=== PATIENT | female | born 1980 | race Caucasian/White ===

== ENCOUNTER 2024-03-13 10:21 | Inpatient (IN) | payer OTHER ==
--- NOTE | 2024-03-13 10:52 | ED ---
General Adult HPI - General Chief complaint: Shortness of Breath Stated complaint: SOB/Covid + Time Seen by Provider: 03/13/24 10:52 Source: patient, RN notes reviewed Mode of arrival: EMS Limitations: no limitations - History of Present Illness Initial comments: Patient is a 43-year-old female present to the emergency department with concerns for difficulty breathing. Patient started with cold symptoms around 4 days ago. Patient has congestion and cough. Patient also feels short of breath. Patient states there is a history of asthma and COPD. Patient is a smoker. Patient tested positive for COVID-19 infection at the facility she came from, [facility]. Patient is there for alcohol and opiates. - Related Data Allergies Allergy/AdvReac Type Severity Reaction Status Date / Time No Known Allergies Allergy Verified 03/13/24 10:29 Review of Systems ROS Statement: Those systems with pertinent positive or pertinent negative responses have been documented in the HPI. ROS Other: All systems not noted in ROS Statement are negative. Constitutional: Reports: chills Eyes: Denies: eye pain ENT: Reports: congestion. Denies: ear pain Respiratory: Reports: cough, dyspnea Endocrine: Reports: fatigue Gastrointestinal: Denies: abdominal pain, nausea, vomiting Musculoskeletal: Denies: back pain Past Medical History Past Medical History: Asthma, COPD Past Surgical History: No Surgical Hx Reported Past Psychological History: Depression Smoking Status: Current every day smoker, Vaper Past Alcohol Use History: Abuse Past Drug Use History: Marijuana General Exam Limitations: no limitations General appearance: alert Head exam: Present: normocephalic Eye exam: Present: normal appearance Neck exam: Present: normal inspection Respiratory exam: Present: rhonchi (Right sided), decreased breath sounds Cardiovascular Exam: Present: regular rate, normal rhythm GI/Abdominal exam: Present: soft. Absent: tenderness Extremities exam: Present: normal inspection. Absent: pedal edema, calf tenderness Neurological exam: Present: alert Psychiatric exam: Present: normal affect, normal mood Skin exam: Present: normal color Course Vital Signs 03/13/24 03/13/24 03/13/24 10:25 10:29 12:01 Temperature 98.1 F Pulse Rate 72 89 72 Respiratory 24 24 24 Rate Blood Pressure 88/56 90/50 100/57 O2 Sat by Pulse 86 L 92 L 94 L Oximetry EKG Findings - EKG Results: EKG: interpreted by ERMD, sinus rhythm, normal axis, normal QRS, normal ST/T EKG shows: bradycardia Medical Decision Making - Medical Decision Making Was pt. sent in by a medical professional or institution (KIRILL Fragoso, SCIENTIFIC SYSTEMS ANALYST, urgent care, hospital, or [place] health care facility...) When possible be specific @ -Patient was sent in from [facility] Did you speak to anyone other than the patient for history (EMS, parent, family, police, friend...)? What history was obtained from this source @ -No Did you review nursing and triage notes (agree or disagree)? Why? @ -I reviewed and agree with nursing and triage notes Were old charts reviewed (outside hosp., previous admission, EMS record, old EKG, old radiological studies, urgent care reports/EKG's, [place] health care facility records)? Report findings @ -No old charts were reviewed Differential Diagnosis (chest pain, altered mental status, abdominal pain women, abdominal pain men, vaginal bleeding, weakness, fever, dyspnea, syncope, headache, dizziness, GI bleed, back pain, seizure, CVA, palpatations, mental health, musculoskeletal)? @ -Differential Dyspnea: Coronary syndrome, arrhythmia, tamponade, asthma, COPD, pulmonary embolism, pneumonia, pneumothorax, pulmonary effusion, anaphylaxis, diabetic ketoacidosis, flailed chest, pulmonary contusion, diaphragmatic rupture, anemia, neuromuscular, this is not meant to be an all-inclusive list. EKG interpreted by me (3pts min.). @ -As above X-rays interpreted by me (1pt min.). @ -Chest x-ray shows right lower lobe infiltrate CT interpreted by me (1pt min.). @ -None done U/S interpreted by me (1pt. min.). @ -None done What testing was considered but not performed or refused? (CT, X-rays, U/S, labs)? Why? @ -None What meds were considered but not given or refused? Why? @ -None Did you discuss the management of the patient with other professionals (professionals i.e. KIRILL Fragoso, SCIENTIFIC SYSTEMS ANALYST, lab, RT, psych nurse, health social work professor, agriculture consultant, teacher, money position officer, case assembler)? Give summary @ -Case discussed with practitioner Daniel with [facility] who will admit covering hospital call Was smoking cessation discussed for >3mins.? @ -No Was critical care preformed (if so, how long)? @ -31 minutes critical care time Were there social determinants of health that impacted care today? How? (Homelessness, low income, unemployed, alcoholism, drug addiction, transportation, low edu. Level, literacy, decrease access to med. care, alf, rehab)? @ -No Was there de-escalation of care discussed even if they declined (Discuss DNR or withdrawal of care, Hospice)? DNR status @ -No What co-morbidities impacted this encounter? (DM, HTN, Smoking, COPD, CAD, Cancer, CVA, ARF, Chemo, Hep., AIDS, mental health diagnosis, sleep apnea, morbid obesity)? @ -History of asthma and COPD Was patient admitted / discharged? Hospital course, mention meds given and route, prescriptions, significant lab abnormalities, going to OR and other pertinent info. @ -Patient presents with hypoxia and dyspnea with recent COVID-19 diagnosis. Chest x-ray concerning for COVID-pneumonia. Patient will be admitted with IV steroids and oxygen. Admission orders written. Undiagnosed new problem with uncertain prognosis? @ -No Drug Therapy requiring intensive monitoring for toxicity (Heparin, Nitro, Insulin, Cardizem)? @ -No Were any procedures done? @ -No Diagnosis/symptom? @ -COVID-19 pneumonia Acute, or Chronic, or Acute on Chronic? @ -Acute Uncomplicated (without systemic symptoms) or Complicated (systemic symptoms)? @ -Complicated with hypoxia Side effects of treatment? @ -No Exacerbation, Progression, or Severe Exacerbation? @ -No Poses a threat to life or bodily function? How? (Chest pain, USA, ID, pneumonia, PE, COPD, DKA, ARF, appy, cholecystitis, CVA, Diverticulitis, Homicidal, Suicidal, threat to staff... and all critical care pts) @ -Threat to pulmonary function - Lab Data Result diagrams: 03/13/24 10:55 03/13/24 10:55 Lab Results 03/13/24 03/13/24 03/13/24 Range/Units 10:55 10:55 10:55 WBC 10.4 (3.8-10.6) k/uL RBC 4.29 (3.80-5.40) m/uL Hgb 13.3 (11.4-16.0) gm/dL Hct 41.0 (34.0-46.0) % MCV 95.4 (80.0-100.0) fL MCH 30.9 (25.0-35.0) pg MCHC 32.4 (31.0-37.0) g/dL RDW 13.9 (11.5-15.5) % Plt Count 246 (150-450) k/uL MPV 7.9 Neutrophils % 77 % Lymphocytes % 18 % Monocytes % 3 % Eosinophils % 1 % Basophils % 0 % Neutrophils # 8.1 H (1.3-7.7) k/uL Lymphocytes # 1.9 (1.0-4.8) k/uL Monocytes # 0.3 (0-1.0) k/uL Eosinophils # 0.1 (0-0.7) k/uL Basophils # 0.0 (0-0.2) k/uL PT 11.2 (10.0-12.5) sec INR 1.0 (<1.2) APTT 23.5 (22.0-30.0) sec Sodium 138 (137-145) mmol/L Potassium 4.5 (3.5-5.1) mmol/L Chloride 104 (98-107) mmol/L Carbon Dioxide 33 H (22-30) mmol/L Anion Gap 1 mmol/L BUN 21 H (7-17) mg/dL Creatinine 0.67 (0.52-1.04) mg/dL Est GFR (CKD-EPI)AfAm >90 (>60 ml/min/1.73 sqM) Est GFR (CKD-EPI)NonAf >90 (>60 ml/min/1.73 sqM) Glucose 112 H (74-99) mg/dL Plasma Lactic Acid Cain (0.7-2.0) mmol/L Calcium 8.8 (8.4-10.2) mg/dL Magnesium 1.8 (1.6-2.3) mg/dL Total Bilirubin 0.3 (0.2-1.3) mg/dL AST 22 (14-36) U/L ALT 18 (4-34) U/L Alkaline Phosphatase 56 (38-126) U/L Troponin I (0.000-0.034) ng/mL Total Protein 6.2 L (6.3-8.2) g/dL Albumin 3.4 L (3.5-5.0) g/dL 03/13/24 03/13/24 Range/Units 10:55 10:55 WBC (3.8-10.6) k/uL RBC (3.80-5.40) m/uL Hgb (11.4-16.0) gm/dL Hct (34.0-46.0) % MCV (80.0-100.0) fL MCH (25.0-35.0) pg MCHC (31.0-37.0) g/dL RDW (11.5-15.5) % Plt Count (150-450) k/uL MPV Neutrophils % % Lymphocytes % % Monocytes % % Eosinophils % % Basophils % % Neutrophils # (1.3-7.7) k/uL Lymphocytes # (1.0-4.8) k/uL Monocytes # (0-1.0) k/uL Eosinophils # (0-0.7) k/uL Basophils # (0-0.2) k/uL PT (10.0-12.5) sec INR (<1.2) APTT (22.0-30.0) sec Sodium (137-145) mmol/L Potassium (3.5-5.1) mmol/L Chloride (98-107) mmol/L Carbon Dioxide (22-30) mmol/L Anion Gap mmol/L BUN (7-17) mg/dL Creatinine (0.52-1.04) mg/dL Est GFR (CKD-EPI)AfAm (>60 ml/min/1.73 sqM) Est GFR (CKD-EPI)NonAf (>60 ml/min/1.73 sqM) Glucose (74-99) mg/dL Plasma Lactic Acid Cain 1.4 (0.7-2.0) mmol/L Calcium (8.4-10.2) mg/dL Magnesium (1.6-2.3) mg/dL Total Bilirubin (0.2-1.3) mg/dL AST (14-36) U/L ALT (4-34) U/L Alkaline Phosphatase (38-126) U/L Troponin I <0.012 (0.000-0.034) ng/mL Total Protein (6.3-8.2) g/dL Albumin (3.5-5.0) g/dL Disposition Clinical Impression: Pneumonia due to COVID-19 virus Disposition: ADMITTED IP TO THIS HOSP Condition: Serious Is patient prescribed a controlled substance at d/c from ED?: No Referrals: None,Stated [Primary Care Provider] - 1-2 days Time of Disposition: 12:20
[2024-03-13 11:09] LABS: Basophils % (A) 0 %; Eosinophils # (A) 0.1 k/uL (0-0.7); Eosinophils % (A) 1 %; HGB 13.3 gm/dL (11.4-16.0); Lymphocytes # (A) 1.9 k/uL (1.0-4.8); Lymphocytes % (A) 18 %; MCH 30.9 pg (25.0-35.0); MCHC 32.4 g/dL (31.0-37.0); MCV 95.4 fL (80.0-100.0); Mean Platelet Volume 7.9; Monocytes # (A) 0.3 k/uL (0-1.0); Monocytes % (A) 3 %; Neutrophils # (A) 8.1 k/uL (1.3-7.7); Neutrophils % (A) 77 %; Platelet Count 246 k/uL (150-450); RBC 4.29 m/uL (3.80-5.40); RDW 13.9 % (11.5-15.5); WBC 10.4 k/uL (3.8-10.6)
[2024-03-13] MEDS ORDERED: ACETAMINOPHEN TAB 325 MG TAB PO PRN (11:21)
[2024-03-13] MEDS ORDERED: ALBUTEROL HFA INHALER INHALATION PRN (11:21)
[2024-03-13 11:25] LABS: ALT 18 U/L (4-34); AST 22 U/L (14-36); African American GFR (CKD) >90 (>60 ml/min/1.73 sqM); Albumin 3.4 g/dL (3.5-5.0); Alkaline Phosphatase 56 U/L (38-126); Anion Gap 1 mmol/L; Blood Urea Nitrogen 21 mg/dL (7-17); Calcium 8.8 mg/dL (8.4-10.2); Carbon Dioxide 33 mmol/L (22-30); Chloride 104 mmol/L (98-107); Glucose 112 mg/dL (74-99); Magnesium 1.8 mg/dL (1.6-2.3); Non-African American GFR(CKD) >90 (>60 ml/min/1.73 sqM); Partial Thromboplastin Time 23.5 sec (22.0-30.0); Potassium 4.5 mmol/L (3.5-5.1); Prothrombin Time 11.2 sec (10.0-12.5); Sodium 138 mmol/L (137-145); Total Bilirubin 0.3 mg/dL (0.2-1.3); Total Protein 6.2 g/dL (6.3-8.2)
[2024-03-13] MEDS: ALBUTEROL HFA INHALER INHALATION STA (11:35)
--- NOTE | 2024-03-13 11:50 | XR ---
EXAMINATION TYPE: XR chest 2V DATE OF EXAM: 03/13/2024 11:34 AM CLINICAL INDICATION: Female, 43 years old with history of difficulty breathing; [facility] COMPARISON: None TECHNIQUE: XR chest 2V Frontal and lateral views of the chest. FINDINGS: Lungs/Pleura:Airspace opacities project over the spine in the middle lobe on lateral view. There is n o evidence of pleural effusion, focal consolidation, or pneumothorax. Pulmonary vascularity: Unremarkable. Heart/mediastinum: Cardiomediastinal silhouette is unremarkable. Musculoskeletal: No acute osseous pathology. IMPRESSION: Somewhat linear opacities project over the spine lateral view and in the expected location of the rig ht middle lobe correlate for pneumonia. This can be confirmed with CT. [facility], , 03/13/2024 11:48 AM
[2024-03-13] MEDS: SODIUM CHLORIDE 0.9% 1,000 ML IV STA ×2 (11:55→11:56)
[2024-03-13] MEDS: DEXAMETHASONE SOD PHOSPHATE 10 MG/ML 1 ML VIAL IVP SCH (11:56)
[2024-03-13] MEDS ORDERED: NALOXONE 0.4 MG/ML 1 ML VIAL IV PRN (12:20)
[2024-03-13 12:22] LABS: C Reactive Protein 0.8 mg/dL (<1.0)
[2024-03-13] MEDS: SODIUM CHLORIDE 0.9% 1,000 ML IV SCH (12:31)
[2024-03-13] MEDS ORDERED: HYOSCYAMINE SULFATE 0.125 MG TAB PO PRN (13:25)
[2024-03-13] MEDS ORDERED: diphenhydrAMINE 25 MG CAP PO PRN (13:25)
--- NOTE | 2024-03-13 14:07 | P.HPIM ---
History of Present Illness H&P Date: 03/13/24 History of Presenting Illness: Patient is a 43-year-old female with a past medical history of asthma/COPD with continued nicotine dependence, daily alcohol abuse, and polysubstance abuse with marijuana and opioids. She reports she has been clean from opioids and on methadone for 1 month and last alcoholic drink was 5 days ago when she was admitted to [facility] for rehab. Patient reports over the past 4 days she developed a cough and upper respiratory like infection. She reports being started on steroids and a Z-Juve with no relief. Patient states she has had increasing shortness of breath and nonproductive cough and was tested for COVID which was positive and she was sent to the emergency department for evaluation. Patient denies having any known fevers, chills, diaphoresis, headache, lightheadedness, dizziness, chest pain, palpitations, nausea, vomiting, abdominal pain or experiencing any numbness/tingling/weakness/swelling in her extremities. Patient denies chance of . Upon arrival to our facility, patient underwent evaluation in the emergency department. Vital signs upon arrival show blood pressure 88/56, heart rate 72, respiratory rate 24, temp 98.1 F, and SpO2 of 86% on room air. EKG completed showing sinus bradycardia at 57 bpm with no significant T wave or ST abnormality showing no signs of acute ischemia upon personal review and interpretation. Chest x-ray completed showing linear opacities of right middle lobe concerning for pneumonia. Labs were completed and reviewed. CBC unremarkable. Coagulation profile normal findings. BMP showing hypercarbia with bicarb of 33 and mild prerenal azotemia with BUN of 21. Blood glucose 112. Lactic acid 1.4. Magnesium 1.8. Influenza A, influenza B, RSV, and repeat COVID PCR at our facility was negative. Patient requiring placement on supplemental oxygen of 4 L with SpO2 increasing to 92%. She was also provided with a 1 L bolus of 0.9% normal saline increasing blood pressure 230/68 at time of admission. Patient admitted under our services for acute on chronic hypoxic respiratory failure secondary to COPD exacerbation and underlying pneumonia. Pulmonology was consulted. Review of systems: Pertinent positives and negatives as discussed in HPI, a complete review of systems was performed and all other systems are negative. Physical exam: Vital signs reviewed and stable. General: Nontoxic, no signs of acute distress Derm: Skin warm and dry, normal coloration for ethnicity. Head: Atraumatic, normocephalic and symmetric. Eyes: EOM's intact, no lid lag, and anicteric sclera Mouth: no lip lesions, mucus membranes moist Cardiovascular: regular rate and rhythm with normal S1S2, no murmur, positive posterior tibial pulses bilaterally, and cap refill < 2 seconds. Lungs: Respirations even, regular, and unlabored on 4 L O2 via nasal cannula. Lungs diminished with diffuse rhonchi and expiratory wheezes. Abdominal: soft, nontender to palpation, no guarding, no appreciable organomegaly Ext: ROM intact. No gross muscle atrophy, no edema, no contractures Neuro: Speech clear, face symmetrical and CN II-XII grossly intact with no noted focal neuro deficits Psych: Alert and oriented to person, place, time, and situation. Appropriate and pleasant affect. Assessment and Plan of Care: Acute on chronic respiratory failure with hypoxia COPD with acute exacerbation Community-acquired pneumonia COVID infection Sepsis on admission with hypotension, tachypnea, and hypoxia -Consult to Pulmonology -Oxygenation to be administered and titrated as needed to maintain SPO2 equal to or greater than 92% -Telemetry monitoring. -Monitor pulse-oximetry -Ventolin inhaler scheduled 4 times daily and as needed for SOB and/or wheezing -Incentive Spirometry -Steroids: Decadron 6 mg daily -Antibiotics: Rocephin 2 g IVPB every 48 hours and azithromycin 500 mg daily. -Follow up on Procalcitonin results. -Order placed for stat urine hCG. Polysubstance abuse Alcohol abuse -Continue methadone 30 mg daily. -Recommend returning to [facility] once medically cleared for discharge. Data and imaging reviewed: As stated above in HPI The patient is admitted with an anticipated greater than 2 midnight stay for evaluation of on chronic respiratory failure with hypoxia secondary to COPD exacerbation with underlying pneumonia and questionable COVID infection. CODE STATUS: Full code DVT prophylaxis: Lovenox Anticipated discharge date: Pending clinical course Anticipated discharge place: Home versus return to [facility] Patient was seen independently by Nurse Practitioner. This document was prepared using [employer] dictation software. Please allow for errors in intake clerk while rare they do occur. .I reviewed the documentation as provided by the ALEXANDER above, who is the original author of this note. I agree with the documented assessment and plan, with the following changes: none Past Medical History Past Medical History: Asthma, COPD Past Surgical History: No Surgical Hx Reported Past Psychological History: Depression Smoking Status: Current every day smoker, Vaper Past Alcohol Use History: Abuse Past Drug Use History: Marijuana Medications and Allergies Home Medications Medication Instructions Recorded Confirmed Type Acetaminophen Tab [Tylenol] 650 mg PO Q4H PRN 03/13/24 03/13/24 History Albuterol Nebulized [Ventolin 2.5 mg INHALATION RT-Q4H PRN 03/13/24 03/13/24 History Nebulized] Azithromycin [Zithromax Z Pack] See Taper PO DIRECTED 03/13/24 03/13/24 History Calcium Phos/D3/Magnesium/Zinc 1 tab PO TID PRN 03/13/24 03/13/24 History [Pruvjmc-Esh-Pdip-Vitamin D3] Chlorpheniramine Maleate 4 mg PO Q4H PRN 03/13/24 03/13/24 History [Chlor-Trimeton] Hyoscyamine Sulfate [Levsin] 0.125 mg PO QID PRN 03/13/24 03/13/24 History Ibuprofen [Motrin Ib] 600 mg PO Q6H PRN 03/13/24 03/13/24 History Loperamide HCl [Imodium A-D] 4 mg PO QID PRN 03/13/24 03/13/24 History Mag Hydrox/Aluminum Hyd/Simeth 30 ml PO Q4H PRN 03/13/24 03/13/24 History [Mylanta Maximum Strength Liq] Melatonin 10 mg PO HS 03/13/24 03/13/24 History Methadone HCl [Methadone Intensol] 30 mg PO DAILY 03/13/24 03/13/24 History Multivitamins, Thera [Multivitamin 1 tab PO DAILY 03/13/24 03/13/24 History (formulary)] Thiamine [Vitamin B-1] 100 mg PO DAILY 03/13/24 03/13/24 History cloNIDine HCL [Catapres] 0.1 - 0.3 mg PO Q4H PRN 03/13/24 03/13/24 History guaiFENesin [guaiFENesin Oral 200 mg PO Q4H PRN 03/13/24 03/13/24 History Solution] ondansetron HCL [Zofran] 8 mg PO Q6H PRN 03/13/24 03/13/24 History predniSONE [Deltasone] See Taper PO DIRECTED 03/13/24 03/13/24 History traZODone HCL [Desyrel] 50 - 150 mg PO HS PRN 03/13/24 03/13/24 History Allergies Allergy/AdvReac Type Severity Reaction Status Date / Time No Known Allergies Allergy Verified 03/13/24 12:59 Physical Exam Vitals: Vital Signs Temp Pulse Resp BP Pulse Ox 03/13/24 12:53 85 20 130/68 94 L 03/13/24 12:01 72 24 100/57 94 L 03/13/24 10:29 89 24 90/50 92 L 03/13/24 10:25 98.1 F 72 24 88/56 86 L Intake and Output 03/12/24 03/13/24 03/13/24 22:59 06:59 14:59 Other: Weight 63.503 kg Results CBC & Chem 7: 03/14/24 06:26 03/14/24 06:26 Labs: Abnormal Lab Results - Last 24 Hours (Table) 03/13/24 03/13/24 Range/Units 10:55 10:55 Neutrophils # 8.1 H (1.3-7.7) k/uL Carbon Dioxide 33 H (22-30) mmol/L BUN 21 H (7-17) mg/dL Glucose 112 H (74-99) mg/dL Total Protein 6.2 L (6.3-8.2) g/dL Albumin 3.4 L (3.5-5.0) g/dL
[2024-03-13] MEDS: NICOTINE 14MG/24HR PATCH TRANSDERM SCH (14:22)
[2024-03-13] MEDS: AZITHROMYCIN 500 MG in SODIUM CHLORIDE 0.9% 250 ML IVPB SCH (15:51)
[2024-03-13] MEDS: ALBUTEROL HFA INHALER INHALATION SCH ×2 (15:54→20:03)
[2024-03-13] MEDS: LORazepam 0.5 MG TAB PO PRN (18:36)
[2024-03-13] MEDS: MELATONIN 5 MG TABLET PO SCH (20:07)
[2024-03-13] MEDS: guaiFENesin SYRUP 100MG/5ML 200 MG/10 ML CUP PO PRN (20:07)
[2024-03-13] MEDS: traZODone HCL 100 MG TAB PO PRN (20:07)
[2024-03-14] MEDS: PROCHLORPERAZINE INJ 10 MG/2 ML VIAL IVP PRN (06:55)
[2024-03-14] MEDS: MULTIVITAMINS, THERA 1 EACH TAB PO SCH (09:22)
[2024-03-14] MEDS: ENOXAPARIN 40 MG/0.4 ML SYRINGE SQ SCH (09:22)
[2024-03-14] MEDS: THIAMINE 100 MG TAB PO SCH (09:22)
[2024-03-14] MEDS: METHADONE 10 MG TAB PO SCH (09:22)
[2024-03-14 09:29] LABS: HGB 12.3 g/dL (12.0-15.0); MCH 30.2 pg (27.0-32.0); MCHC 31.5 g/dL (32.0-37.0); MCV 95.8 FL (80.0-97.0); NRBC Per 100 WBC 0 X 10*3/uL (0.00-0.01); Platelet Count 264 X 10*3/uL (140-440); RBC 4.07 X 10*6/uL (4.10-5.20); RDW 13.5 % (11.5-14.5)
[2024-03-14 09:33] LABS: ALT 18 U/L (8-44); AST 16 U/L (13-35); Albumin 3.3 g/dL (3.8-4.9); Albumin/Globulin Ratio 1.27 Ratio (1.60-3.17); Alkaline Phosphatase 57 U/L (41-126); BUN/Creat Ratio 25.67 Ratio (12.00-20.00); Blood Urea Nitrogen 15.4 mg/dL (9.0-27.0); Calcium 8.8 mg/dL (8.7-10.3); Carbon Dioxide 29.7 mmol/L (21.6-31.8); Chloride 103 mmol/L (96-109); Globulin 2.6 g/dL (1.6-3.3); Glucose 109 mg/dL (70-110); Magnesium 1.9 mg/dL (1.5-2.4); Potassium 4.4 mmol/L (3.5-5.5); Sodium 140 mmol/L (135-145); Total Bilirubin <0.2 mg/dL (0.3-1.2); Total Protein 5.9 g/dL (6.2-8.2)
--- NOTE | 2024-03-14 13:05 | P.CNPUL ---
History of Present Illness Consult date: 03/14/24 Requesting physician: Daniel Hightower Reason for consult: cough Chief complaint: Cough and congestion History of present illness: This is a 43-year-old female patient with a history of chronic obstructive pulmonary disease, chronic and ongoing tobacco dependence, vaping, alcohol and substance abuse, marijuana use who was currently in [facility] for alcohol and opiate rehabilitation. She had developed a 4-day history of increasing shortness of breath cough and congestion. [facility] tested positive for COVID-19 infection there. Presented to the emergency room yesterday. Chest x-ray shows streaky atelectasis/infiltrate of the right lower lobe. Count 13.8. Hemoglobin 12.3. Platelets 264. Sodium 140. Potassium 4.4. Bicarb 30. BUN 15. Creatinine 0.6. Glucose 109. Procalcitonin was negative at 0.05. Viral screen negative. COVID-19 screen negative here. She is seen today in consultation on the regular medical floor. She is currently resting in bed. Awake and alert in no acute distress. She is maintaining O2 saturations in the 90s on 4 L/min per nasal cannula. She is afebrile. Hemodynamically stable. She is currently on albuterol, Decadron Robitussin. Antibiotics in the form of ceftriaxone and azithromycin. Lovenox for DVT prophylaxis. NicoDerm patch in place. Review of Systems REVIEW OF SYSTEMS: CONSTITUTIONAL: Denies any recent significant weight loss or weight gain. EYES: Denies change in vision. EARS, NOSE, MOUTH, THROAT: Denies headaches, denies sore throat. CARDIOVASCULAR: Denies chest pain, palpitations or syncopal episodes. RESPIRATORY: Positive for shortness of breath, cough, congestion or hemoptysis. GASTROINTESTINAL: Denies change in appetite, denies abdominal pain GENITOURINARY: Denies hematuria, denies infections. MUSKULOSKELETAL: Denies pain, denies swelling. INTEGUMENTARY: Denies rash, denies eczema. NEUROLOGICAL: Denies recent memory loss, no recent seizure activity. PSYCHIATRIC: Denies anxiety, denies depression. HEMATOLOGIC/LYMPHATIC: Denies anemia, denies enlarged lymph nodes. Past Medical History Past Medical History: Asthma, COPD History of Any Multi-Drug Resistant Organisms: None Reported Past Surgical History: No Surgical Hx Reported Smoking Status: Current every day smoker - Past Family History Father Family Medical History: No Reported History Medications and Allergies Home Medications Medication Instructions Recorded Confirmed Type Acetaminophen Tab [Tylenol] 650 mg PO Q4H PRN 03/13/24 03/13/24 History Albuterol Nebulized [Ventolin 2.5 mg INHALATION RT-Q4H PRN 03/13/24 03/13/24 History Nebulized] Azithromycin [Zithromax Z Pack] See Taper PO DIRECTED 03/13/24 03/13/24 History Calcium Phos/D3/Magnesium/Zinc 1 tab PO TID PRN 03/13/24 03/13/24 History [Pebdxnz-Gma-Nydl-Vitamin D3] Chlorpheniramine Maleate 4 mg PO Q4H PRN 03/13/24 03/13/24 History [Chlor-Trimeton] Hyoscyamine Sulfate [Levsin] 0.125 mg PO QID PRN 03/13/24 03/13/24 History Ibuprofen [Motrin Ib] 600 mg PO Q6H PRN 03/13/24 03/13/24 History Loperamide HCl [Imodium A-D] 4 mg PO QID PRN 03/13/24 03/13/24 History Mag Hydrox/Aluminum Hyd/Simeth 30 ml PO Q4H PRN 03/13/24 03/13/24 History [Mylanta Maximum Strength Liq] Melatonin 10 mg PO HS 03/13/24 03/13/24 History Methadone HCl [Methadone Intensol] 30 mg PO DAILY 03/13/24 03/13/24 History Multivitamins, Thera [Multivitamin 1 tab PO DAILY 03/13/24 03/13/24 History (formulary)] Thiamine [Vitamin B-1] 100 mg PO DAILY 03/13/24 03/13/24 History cloNIDine HCL [Catapres] 0.1 - 0.3 mg PO Q4H PRN 03/13/24 03/13/24 History guaiFENesin [guaiFENesin Oral 200 mg PO Q4H PRN 03/13/24 03/13/24 History Solution] ondansetron HCL [Zofran] 8 mg PO Q6H PRN 03/13/24 03/13/24 History predniSONE [Deltasone] See Taper PO DIRECTED 03/13/24 03/13/24 History traZODone HCL [Desyrel] 50 - 150 mg PO HS PRN 03/13/24 03/13/24 History Allergies Allergy/AdvReac Type Severity Reaction Status Date / Time No Known Allergies Allergy Verified 03/13/24 12:59 Physical Exam Vitals: Vital Signs Temp Pulse Pulse Resp BP BP Pulse Ox 03/14/24 02:00 98.2 F 53 L 16 117/63 96 03/13/24 19:53 98.5 F 60 114/67 97 03/13/24 17:47 89 20 140/68 96 03/13/24 17:00 86 20 128/68 96 03/13/24 15:56 63 20 116/70 93 L 03/13/24 15:00 80 24 130/70 96 Intake and Output 03/13/24 03/14/24 03/14/24 22:59 06:59 14:59 Other: Weight 63.503 kg GENERAL EXAM: Alert, 43-year-old female, on 4 L nasal cannula, comfortable in no apparent distress. HEAD: Normocephalic. EYES: Normal reaction of pupils, equal size. NOSE: Clear with pink turbinates. THROAT: Edentulous. No erythema or exudates. NECK: No masses, no JVD. CHEST: No chest wall deformity. LUNGS: Equal air entry with few scattered rhonchi. CVS: S1 and S2 normal with no audible murmur, regular rhythm. ABDOMEN: No hepatosplenomegaly, normal bowel sounds, no guarding or rigidity. SPINE: No scoliosis or deformity SKIN: No rashes CENTRAL NERVOUS SYSTEM: No focal deficits, tone is normal in all 4 extremities. EXTREMITIES: There is no peripheral edema. No clubbing, no cyanosis. Peripheral pulses are intact. Results - Laboratory Findings CBC and BMP: 03/14/24 06:26 03/14/24 06:26 PT/INR, D-dimer PT 11.2 sec (10.0-12.5) 03/13/24 10:55 INR 1.0 (<1.2) 03/13/24 10:55 Abnormal lab findings: Abnormal Labs 03/13/24 03/13/24 03/14/24 10:55 10:55 06:26 WBC 13.80 H RBC 4.07 L MCHC 31.5 L Neutrophils # 8.1 H Carbon Dioxide 33 H BUN 21 H BUN/Creatinine Ratio Glucose 112 H Total Bilirubin Total Protein 6.2 L Albumin 3.4 L Albumin/Globulin Ratio 03/14/24 06:26 WBC RBC MCHC Neutrophils # Carbon Dioxide BUN BUN/Creatinine Ratio 25.67 H Glucose Total Bilirubin <0.2 L Total Protein 5.9 L Albumin 3.3 L Albumin/Globulin Ratio 1.27 L - Diagnostic Findings Chest x-ray: image reviewed Assessment and Plan Assessment: Acute hypoxic respiratory failure secondary to acute exacerbation of suspected chronic obstructive pulmonary disease, possible atypical pneumonia. Procalcitonin negative. Viral screen negative Chronic and ongoing tobacco dependence, vaping History of alcohol abuse History of opioid abuse Marijuana use History of depression Plan: Patient was seen and evaluated Chest x-ray, labs and medications reviewed Titrate down/off the oxygen as tolerated Could be transferred back to [facility] Complete 3 more days of azithromycin Complete a Medrol Dosepak Educated regarding the importance of complete smoking cessation NicoDerm patch in place Follow up closely with her PCP in [place] I have personally seen and examined the patient, performed the documentation and the assessment and plan as written. Number of minutes spent on the visit: 20 Dictation was produced using [employer] dictation software. Please excuse any grammatical, word or spelling errors.
--- NOTE | 2024-03-14 15:54 | P.PN ---
Subjective Progress Note Date: 03/14/24 Hospital Course: Patient is a 43-year-old female with a past medical history of asthma/COPD with continued nicotine dependence, daily alcohol abuse, and polysubstance abuse with marijuana and opioids. She reports she has been clean from opioids and on methadone for 1 month and last alcoholic drink was 5 days ago when she was admitted to [facility] for rehab. Patient reports over the past 4 days she developed a cough and upper respiratory like infection. She reports being started on steroids and a Z-Juve with no relief. Patient states she has had increasing shortness of breath and nonproductive cough and was tested for COVID which was positive and she was sent to the emergency department for evaluation. Patient denies having any known fevers, chills, diaphoresis, headache, lightheadedness, dizziness, chest pain, palpitations, nausea, vomiting, ab dominal pain or experiencing any numbness/tingling/weakness/swelling in her extremities. Patient denies chance of . Upon arrival to our facility, patient underwent evaluation in the emergency department. Vital signs upon arrival show blood pressure 88/56, heart rate 72, respiratory rate 24, temp 98.1 F, and SpO2 of 86% on room air. EKG completed showing sinus bradycardia at 57 bpm with no significant T wave or ST abnormality showing no signs of acute ischemia upon personal review and interpretation. Chest x-ray completed showing linear opacities of right middle lobe concerning for pneumonia. Labs were completed and reviewed. CBC unremarkable. Coagulation profile normal findings. BMP showing hypercarbia with bicarb of 33 and mild prerenal azotemia with BUN of 21. Blood glucose 112. Lactic acid 1.4. Magnesium 1.8. Influenza A, influenza B, RSV, and repeat COVID PCR at our facility was negative. Patient requiring placement on supplemental oxygen of 4 L with SpO2 increasing to 92%. She was also provided with a 1 L bolus of 0.9% normal saline increasing blood pressure 230/68 at time of admission. Patient admitted under our services for acute on chronic hypoxic respiratory failure secondary to COPD exacerbation and underlying pneumonia. Pulmonology was consulted. Physical exam: Evaluated at bedside this morning. She was sleeping but easily awoken via verbal stimuli. She reports continued nonproductive cough and shortness of breath otherwise denies any other complaints. Discussed with nursing staff need to wean down from oxygen to maintain SpO2 equal to or greater than 90 to 92%. Vital signs reviewed and stable. General: Nontoxic, no signs of acute distress Derm: Skin warm and dry, normal coloration for ethnicity. Head: Atraumatic, normocephalic and symmetric. Eyes: EOM's intact, no lid lag, and anicteric sclera Mouth: no lip lesions, mucus membranes moist Cardiovascular: regular rate and rhythm with normal S1S2, no murmur, positive posterior tibial pulses bilaterally, and cap refill < 2 seconds. Lungs: Respirations even, regular, and unlabored on 4 L O2 via nasal cannula. Lungs diminished with diffuse expiratory wheezes. Abdominal: soft, nontender to palpation, no guarding, no appreciable organomegaly Ext: ROM intact. No gross muscle atrophy, no edema, no contractures Neuro: Speech clear, face symmetrical and CN II-XII grossly intact with no noted focal neuro deficits Psych: Alert and oriented to person, place, time, and situation. Appropriate and pleasant affect. Assessment and Plan of Care: Acute on chronic respiratory failure with hypoxia COPD with acute exacerbation Community-acquired pneumonia COVID infection, positive result at [facility] and negative results upon arrival Sepsis on admission with hypotension, tachypnea, and hypoxia -Consult to Pulmonology, appreciate recommendations -Oxygenation to be administered and titrated as needed to maintain SPO2 equal to or greater than 92% -Telemetry monitoring. -Monitor pulse-oximetry -Ventolin inhaler scheduled 4 times daily and as needed for SOB and/or wheezing -Incentive Spirometry -Steroids: Decadron 6 mg daily -Antibiotics: Rocephin 2 g IVPB every 48 hours and azithromycin 500 mg daily (day 2 of antibiotics) -Urine hCG negative. Polysubstance abuse Alcohol abuse -Continue methadone 30 mg daily. -Recommend returning to [facility] once medically cleared for discharge. Data and imaging reviewed: Urine hCG negative. CBC showing mild leukocytosis with WBC count of 13.80 otherwise normal findings. BMP unremarkable. Blood glucose 109. Liver profile normal findings. Albumin low at 3.3. Vital signs reviewed. Blood pressure 127/64, heart rate 53, respiratory rate 16, temp 98.2 F, and SpO2 of 96% on 4 L. CODE STATUS: Full code DVT prophylaxis: Lovenox Anticipated discharge date: Pending clinical course Anticipated discharge place: Home versus return to [facility] Patient was seen independently by Nurse Practitioner. This document was prepared using Dragon dictation software. Please allow for errors in refractory furnace designer while rare they do occur. I reviewed the documentation as provided by the ALEXANDER above, who is the original author of this note. I agree with the documented assessment and plan, with the following changes: none Objective - Vital Signs Vital signs: Vital Signs Temp 98.2 F 03/14/24 02:00 Pulse 53 L 03/14/24 02:00 Resp 16 03/14/24 02:00 BP 117/63 03/14/24 02:00 Pulse Ox 96 03/14/24 02:00 FiO2 Intake & Output 03/13/24 03/14/24 03/14/24 18:59 06:59 18:59 Weight 63.503 kg - Labs CBC & Chem 7: 03/14/24 06:26 03/14/24 06:26 Labs: Abnormal Lab Results - Last 24 Hours (Table) 03/13/24 03/13/24 Range/Units 10:55 10:55 Neutrophils # 8.1 H (1.3-7.7) k/uL Carbon Dioxide 33 H (22-30) mmol/L BUN 21 H (7-17) mg/dL Glucose 112 H (74-99) mg/dL Total Protein 6.2 L (6.3-8.2) g/dL Albumin 3.4 L (3.5-5.0) g/dL
[2024-03-14] MEDS: LORazepam 1 MG TAB PO STA (20:18)
[2024-03-15] MEDS: LORazepam 1 MG TAB PO PRN (07:54)
[2024-03-15 08:35] LABS: HCT 39.6 % (37.2-46.3); HGB 12.7 g/dL (12.0-15.0); MCH 30.8 pg (27.0-32.0); MCHC 32.1 g/dL (32.0-37.0); MCV 95.9 FL (80.0-97.0); Mean Platelet Volume 10.2 FL (9.5-12.2); NRBC Per 100 WBC 0 X 10*3/uL (0.00-0.01); Platelet Count 269 X 10*3/uL (140-440); RBC 4.13 X 10*6/uL (4.10-5.20); RDW 13.4 % (11.5-14.5); WBC 13.67 X 10*3/uL (4.50-10.00)
[2024-03-15 08:53] LABS: Magnesium 1.7 mg/dL (1.5-2.4)
[2024-03-15 08:55] VITALS: BP 96/61; RESP 18; TEMP 98
[2024-03-15 08:56] LABS: Blood Urea Nitrogen 16.5 mg/dL (9.0-27.0); Carbon Dioxide 29.6 mmol/L (21.6-31.8); Chloride 97 mmol/L (96-109); Glucose 136 mg/dL (70-110); Potassium 4.1 mmol/L (3.5-5.5); Sodium 138 mmol/L (135-145)
[2024-03-15 08:57] LABS: ALT 31 U/L (8-44); AST 26 U/L (13-35); Albumin 3.5 g/dL (3.8-4.9); Albumin/Globulin Ratio 1.35 Ratio (1.60-3.17); Alkaline Phosphatase 63 U/L (41-126); Calcium 9.3 mg/dL (8.7-10.3); Globulin 2.6 g/dL (1.6-3.3); Total Bilirubin <0.2 mg/dL (0.3-1.2); Total Protein 6.1 g/dL (6.2-8.2)
--- NOTE | 2024-03-15 10:47 | P.DS ---
Providers Date of admission: 03/13/24 12:22 Expected date of discharge: 03/15/24 Attending physician: Iker Santos Consults: 03/13/24 12:20 Consult Physician Routine Consulting Provider: Desirae Rievra Consult Reason/Comments: COVID-pneumonia Do you want consulting provider notified?: Yes Primary care physician: Stated None Hospital Course: Discharge Diagnosis: Acute on chronic respiratory failure with hypoxia. Patient successfully weaned off oxygen and is maintaining SpO2 of 92% on room air. COPD with acute exacerbation. Patient discharged home on Medrol Dosepak and to complete 3 additional days of Zithromax. Patient strongly encouraged to avoid cigarette smoke exposure and to stop smoking. Patient discharged home with nicotine patch 14 mg daily. To continue use of Ventolin nebulizer treatments as needed for wheezing/shortness of breath. Recommend outpatient follow-up with otorhinolaryngologist in 1 week. Community-acquired pneumonia. Patient completed 2-day course of IV antibiotics and is being discharged home on an additional 3 days of Zithromax 500 mg daily. Influenza A, influenza B, RSV, and COVID PCR were negative. Urine Legionella negative. COVID infection, positive result at [facility] and negative results upon arrival. Sepsis on admission with hypotension, tachypnea, and hypoxia. Patient completed 2-day course of IV antibiotics and is being discharged home on an additional 3 days of Zithromax 500 mg daily. Polysubstance abuse. Continue methadone 30 mg daily. Alcohol abuse. Recommend returning to [facility] once medically cleared for discharge. Hospital Course: Patient is a 43-year-old female with a past medical history of asthma/COPD with continued nicotine dependence, daily alcohol abuse, and polysubstance abuse with marijuana and opioids. She reports she has been clean from opioids and on methadone for 1 month and last alcoholic drink was 5 days ago when she was admitted to [facility] for rehab. Patient reports over the past 4 days she developed a cough and upper respiratory like infection. She reports being started on steroids and a Z-Juve with no relief. Patient states she has had increasing shortness of breath and nonproductive cough and was tested for COVID which was positive and she was sent to the emergency department for evaluation. Patient denies having any known fevers, chills, diaphoresis, headache, lightheadedness, dizziness, chest pain, palpitations, nausea, vomiting, abdominal pain or experiencing any numbness/tingling/weakness/swelling in her extremities. Patient denies chance of . Upon arrival to our facility, patient underwent evaluation in the emergency department. Vital signs upon arrival show blood pressure 88/56, heart rate 72, respiratory rate 24, temp 98.1 F, and SpO2 of 86% on room air. EKG completed showing sinus bradycardia at 57 bpm with no significant T wave or ST abnormality showing no signs of acute ischemia upon personal review and interpretation. Chest x-ray completed showing linear opacities of right middle lobe concerning for pneumonia. Labs were completed and reviewed. CBC unremarkable. Coagulation profile normal findings. BMP showing hypercarbia with bicarb of 33 and mild prerenal azotemia with BUN of 21. Blood glucose 112. Lactic acid 1.4. Magnesium 1.8. Influenza A, influenza B, RSV, and repeat COVID PCR at our facility was negative. Patient requiring placement on supplemental oxygen of 4 L with SpO2 increasing to 92%. She was also provided with a 1 L bolus of 0.9% normal saline increasing blood pressure 230/68 at time of admission. Patient admitted under our services for acute on chronic hypoxic respiratory failure secondary to COPD exacerbation and underlying pneumonia. Pulmonology was consulted. Patient received [id number] breathing treatments and was placed on IV steroids. She was weaned off of oxygen and currently maintaining SpO2 of 92% on room air. Patient cleared from pulmonology perspective for discharge and is medically optimized for return to [facility] at this time. Patient strongly advised to avoid cigarette smoke exposure and to stop smoking. Physical exam: Vital signs reviewed and stable. General: Nontoxic, no signs of acute distress Derm: Skin warm and dry, normal coloration for ethnicity. Head: Atraumatic, normocephalic and symmetric. Eyes: EOM's intact, no lid lag, and anicteric sclera Mouth: no lip lesions, mucus membranes moist Cardiovascular: regular rate and rhythm with normal S1S2, no murmur, positive posterior tibial pulses bilaterally, and cap refill < 2 seconds. Lungs: Respirations even, regular, and unlabored on 4 L O2 via nasal cannula. Lungs diminished with diffuse expiratory wheezes. Abdominal: soft, nontender to palpation, no guarding, no appreciable organomegaly Ext: ROM intact. No gross muscle atrophy, no edema, no contractures Neuro: Speech clear, face symmetrical and CN II-XII grossly intact with no noted focal neuro deficits Psych: Alert and oriented to person, place, time, and situation. Appropriate and pleasant affect. A total of 35 minutes of time were spent preparing this complex discharge summary. Pt was discharged on 03/15/2024 at 9:54 AM. Patient was seen independently by Nurse Practitioner. This document was prepared using [employer] dictation software. Please allow for errors in employment service specialist while rare they do occur. Daniel Hightower NP rendered care for this patient independently, reviewed the findings and plan as documented in the note above. I did not physically speak with or examine the patient on this date. Patient Condition at Discharge: Stable Plan - Discharge Summary New Discharge Prescriptions: New Nicotine 14Mg/24Hr Patch [Habitrol] 1 patch TRANSDERM DAILY 30 Days #30 patch methylPREDNISolone Dose Pack [Medrol Dose Pack] 4 mg PO DIRECTED #21 tab Azithromycin [Zithromax] 500 mg PO DAILY 3 Days #3 tab Continue Albuterol Nebulized [Ventolin Nebulized] 2.5 mg INHALATION RT-Q4H PRN PRN Reason: Shortness Of Breath traZODone HCL [Desyrel] 50 - 150 mg PO HS PRN PRN Reason: Insomnia Thiamine [Vitamin B-1] 100 mg PO DAILY Multivitamins, Thera [Multivitamin (formulary)] 1 tab PO DAILY Mag Hydrox/Aluminum Hyd/Simeth [Mylanta Maximum Strength Liq] 30 ml PO Q4H PRN PRN Reason: Gi Upset Melatonin 10 mg PO HS Loperamide HCl [Imodium A-D] 4 mg PO QID PRN PRN Reason: Loose Stool Chlorpheniramine Maleate [Chlor-Trimeton] 4 mg PO Q4H PRN PRN Reason: Allergy Symptoms Calcium Phos/D3/Magnesium/Zinc [Ravogpa-Zjv-Qnyy-Vitamin D3] 1 tab PO TID PRN PRN Reason: Supplement Methadone HCl [Methadone Intensol] 30 mg PO DAILY ondansetron HCL [Zofran] 8 mg PO Q6H PRN PRN Reason: Nausea And Vomiting Acetaminophen Tab [Tylenol] 650 mg PO Q4H PRN PRN Reason: Pain Ibuprofen [Motrin Ib] 600 mg PO Q6H PRN PRN Reason: Pain Hyoscyamine Sulfate [Levsin] 0.125 mg PO QID PRN PRN Reason: Gi Upset guaiFENesin [guaiFENesin Oral Solution] 200 mg PO Q4H PRN PRN Reason: Cough cloNIDine HCL [Catapres] 0.1 - 0.3 mg PO Q4H PRN PRN Reason: BP >160/100 Discontinued predniSONE [Deltasone] See Taper PO DIRECTED Azithromycin [Zithromax Z Pack] See Taper PO DIRECTED Discharge Medication List Acetaminophen Tab [Tylenol] 650 mg PO Q4H PRN 03/13/24 [History] Albuterol Nebulized [Ventolin Nebulized] 2.5 mg INHALATION RT-Q4H PRN 03/13/24 [History] Calcium Phos/D3/Magnesium/Zinc [Malkqqt-Kjh-Rypz-Vitamin D3] 1 tab PO TID PRN 03/13/24 [History] Chlorpheniramine Maleate [Chlor-Trimeton] 4 mg PO Q4H PRN 03/13/24 [History] Hyoscyamine Sulfate [Levsin] 0.125 mg PO QID PRN 03/13/24 [History] Ibuprofen [Motrin Ib] 600 mg PO Q6H PRN 03/13/24 [History] Loperamide HCl [Imodium A-D] 4 mg PO QID PRN 03/13/24 [History] Mag Hydrox/Aluminum Hyd/Simeth [Mylanta Maximum Strength Liq] 30 ml PO Q4H PRN 1 [History] Melatonin 10 mg PO HS 03/13/24 [History] Methadone HCl [Methadone Intensol] 30 mg PO DAILY 03/13/24 [History] Multivitamins, Thera [Multivitamin (formulary)] 1 tab PO DAILY 03/13/24 [History] Thiamine [Vitamin B-1] 100 mg PO DAILY 03/13/24 [History] cloNIDine HCL [Catapres] 0.1 - 0.3 mg PO Q4H PRN 03/13/24 [History] guaiFENesin [guaiFENesin Oral Solution] 200 mg PO Q4H PRN 03/13/24 [History] ondansetron HCL [Zofran] 8 mg PO Q6H PRN 03/13/24 [History] traZODone HCL [Desyrel] 50 - 150 mg PO HS PRN 03/13/24 [History] Azithromycin [Zithromax] 500 mg PO DAILY 3 Days #3 tab 03/15/24 [Rx] Nicotine 14Mg/24Hr Patch [Habitrol] 1 patch TRANSDERM DAILY 30 Days #30 patch 03/15/24 [Rx] methylPREDNISolone Dose Pack [Medrol Dose Pack] 4 mg PO DIRECTED #21 tab 03/15/24 [Rx] Follow up Appointment(s)/Referral(s): Desirae Rivera MD [STAFF PHYSICIAN] - 1 Week Harish Mcconnell MD [REFERRING] - 03/19/24 11:00 am Patient Instructions/Handouts: COPD (Chronic Obstructive Pulmonary Disease) (DC), Community Acquired Pneumonia (DC), Chronic Lung Disease and Infection Prevention (DC) Activity/Diet/Wound Care/Special Instructions: Activity: As tolerated. Take breaks as needed. Diet: Resume Regular Diet. Special Instructions: Take all of your medications as directed and remember to keep all of your doctor's appointments and follow-up as needed. Thank you for allowing us to participate in your care, it was truly a pleasure having you for our patient!!! Discharge Disposition: HOME SELF-CARE
[2024-03-15] MEDS: methylPREDNISolone 4 MG TAB TAPER PO SCH (11:44)
[2024-03-15 12:46] VITALS: PULSE 65
--- NOTE | 2024-03-15 13:32 | P.PN ---
Subjective Progress Note Date: 03/15/24 This is a 43-year-old female patient with a history of chronic obstructive pulmonary disease, chronic and ongoing tobacco dependence, vaping, alcohol and substance abuse, marijuana use who was currently in [facility] for alcohol and opiate rehabilitation. She had developed a 4-day history of increasing shortness of breath cough and congestion. Stating tested positive for COVID-19 infection there. Presented to the emergency room yesterday. Chest x-ray shows streaky atelectasis/infiltrate of the right lower lobe. Count 13.8. Hemoglobin 12.3. Platelets 264. Sodium 140. Potassium 4.4. Bicarb 30. BUN 15. Creatinine 0.6. Glucose 109. Procalcitonin was negative at 0.05. Viral screen negative. COVID-19 screen negative here. She is seen today in consultation on the regular medical floor. She is currently resting in bed. Awake and alert in no acute distress. She is maintaining O2 saturations in the 90s on 4 L/min per nasal cannula. She is afebrile. Hemodynamically stable. She is currently on albuterol, Decadron Robitussin. Antibiotics in the form of ceftriaxone and azithromycin. Lovenox for DVT prophylaxis. NicoDerm patch in place. The patient is seen today March 15, 2024 in follow-up on the regular medical floor. She is currently sitting up in bed. Awake and alert in no acute distress. She is maintaining good O2 saturations in the 90s on room air. Her procalcitonin was negative at 0.05. White count 13.6. Hemoglobin 12.7. Platelets 269. Sodium 138. Potassium 4.1. Bicarb 30. BUN 17. Creatinine 0.6. Glucose 136. Urine Legionella screen negative. She remains on bronchodilators and steroids. NicoDerm patch in place. Objective - Vital Signs Vital signs: Vital Signs Temp 98.0 F 03/15/24 07:40 Pulse 80 03/15/24 08:12 Resp 18 03/15/24 08:00 BP 96/61 03/15/24 07:40 Pulse Ox 92 L 03/15/24 08:12 FiO2 Intake & Output 03/14/24 03/15/24 03/15/24 18:59 06:59 18:59 Other: # Voids 3 2 - Exam GENERAL EXAM: Alert, 43-year-old female, sitting up in bed, on room air, comfortable in no apparent distress. HEAD: Normocephalic. EYES: Normal reaction of pupils, equal size. NOSE: Clear with pink turbinates. THROAT: Edentulous. No erythema or exudates. NECK: No masses, no JVD. CHEST: No chest wall deformity. LUNGS: Equal air entry with few scattered rhonchi. CVS: S1 and S2 normal with no audible murmur, regular rhythm. ABDOMEN: No hepatosplenomegaly, normal bowel sounds, no guarding or rigidity. SPINE: No scoliosis or deformity SKIN: No rashes CENTRAL NERVOUS SYSTEM: No focal deficits, tone is normal in all 4 extremities. EXTREMITIES: There is no peripheral edema. No clubbing, no cyanosis. Periphe ral pulses are intact. - Labs CBC & Chem 7: 03/15/24 03:37 03/15/24 03:37 Labs: Abnormal Lab Results - Last 24 Hours (Table) 03/15/24 03/15/24 Range/Units 03:37 03:37 WBC 13.67 H (4.50-10.00) X 10*3/uL BUN/Creatinine Ratio 27.50 H (12.00-20.00) Ratio Glucose 136 H (70-110) mg/dL Total Bilirubin <0.2 L (0.3-1.2) mg/dL Total Protein 6.1 L (6.2-8.2) g/dL Albumin 3.5 L (3.8-4.9) g/dL Albumin/Globulin Ratio 1.35 L (1.60-3.17) Ratio Assessment and Plan Assessment: Acute hypoxic respiratory failure secondary to acute exacerbation of suspected chronic obstructive pulmonary disease, possible atypical pneumonia. Procalcitonin negative. Viral screen negative Chronic and ongoing tobacco dependence, vaping History of alcohol abuse History of opioid abuse Marijuana use History of depression Plan: Patient was seen and evaluated Labs and medications reviewed Stable and on room air Procalcitonin negative Continue albuterol HFA as needed Complete a prednisone taper Could be transferred back to [facility] Follow up closely with her PCP in [place] I have personally seen and examined the patient, performed the documentation and the assessment and plan as written. Number of minutes spent on the visit: 10 Dictation was produced using [employer] software. Please excuse any grammatical, word or spelling errors.
== END 2024-03-15 13:13 | disposition home or self-care (01) | DRG 871 ==
LOC: EC 10:21 → 4SSUR 12:22
PROVIDERS: ADMIT Student in an Organized Health Care Education/Training Program; ATTEND Student in an Organized Health Care Education/Training Program
DX: A41.9 Sepsis, unspecified organism (principal); J18.9 Pneumonia, unspecified organism; J96.21 Acute and chronic respiratory failure with hypoxia; J44.1 Chronic obstructive pulmonary disease with (acute) exacerbation; J44.0 Chronic obstructive pulmonary disease with (acute) lower respiratory infection; F10.10 Alcohol abuse, uncomplicated; F19.10 Other psychoactive substance abuse, uncomplicated; F32.A Depression, unspecified; F10.11 Alcohol abuse, in remission; F17.290 Nicotine dependence, other tobacco product, uncomplicated
CPT/HCPCS: 36415; 71046; 80053; 81025; 82728; 83605; 83615; 83735; 84145; 84484; 85025; 85027; 85610; 85730; 86140; 87449; 87636; 93005; 94640; 96361; 96365; 96366; 96368; 96375; 99285